=== PATIENT | male | born 1940 | race Caucasian/White ===

== ENCOUNTER 2020-11-04 18:18 | Inpatient (IN) ==
[2020-11-04] MEDS ORDERED: *HR* Heparin 10,000 UNIT/10 ML VIAL ONE (18:21)
[2020-11-04] MEDS ORDERED: Heparin 1,000 UNITS/500 mL 500 ML ONE (18:21)
[2020-11-04] MEDS ORDERED: ISOVUE-370 200 ML INFUS..BTL ONE (18:21)
[2020-11-04] MEDS ORDERED: 0.9 % Sodium Chloride 2,000 ML ONE (18:21)
[2020-11-04] MEDS ORDERED: Nitroglycerin 1,000 MCG/10 ML VIAL IV ONE (18:22)
[2020-11-04] MEDS ORDERED: *HR* FentaNYL (PF) 100 MCG/2 ML VIAL ONE (18:38)
[2020-11-04] MEDS ORDERED: *HR* Midazolam HCl 2 MG/2 ML VIAL ONE (18:39)
[2020-11-04] MEDS ORDERED: Perflutren Lipid Microsphere 1.3 ML in 0.9 % Sodium Chloride 8.7 ML IVP PRN (19:53)
[2020-11-04] MEDS: *HR* Ticagrelor 90 MG TABLET PO SCH (21:48)
[2020-11-05 04:58] LABS: Basophils % 0.5 %; Eosinophils # 0.3 K/mcL (0.0-0.6); Eosinophils % 3.4 %; Hematocrit 41.6 % (37.5-50.1); Hemoglobin 13.5 g/dL (12.9-16.9); Immature Granulocytes % 0.2 % (0-4); Lymphocytes # 1.5 K/mcL (0.6-4.6); Lymphocytes % 17.5 %; Mean Corpuscular HGB Conc 32.5 g/dL (31.6-35.5); Mean Corpuscular Volume 95.6 fL (83.0-100.0); Mean Platelet Volume 11.1 fL (9.4-12.4); Monocytes # 0.8 K/mcL (0.0-1.3); Monocytes % 9.2 %; Neutrophils # 6.1 K/mcL (1.6-8.9); Platelet Count 204 K/mcL (140-400); Red Blood Count 4.35 M/mcL (4.19-5.50); Red Cell Distribution Width 12.5 % (11.5-14.5); Segmented Neutrophils % 69.2 %; White Blood Count 8.7 K/mcL (4.3-11.1)
[2020-11-05 05:23] LABS: Alanine Aminotransferase 23 Units/L (7-52); Albumin 3.6 g/dL (3.5-5.7); Alkaline Phosphatase 60 Units/L (34-104); Aspartate Amino Transferase 91 Units/L (13-39); BUN/Creatinine Ratio 25 (6-26); Bilirubin,Total 0.8 mg/dL (0.3-1.0); Blood Urea Nitrogen 29 mg/dL (8-23); Calcium 9.4 mg/dL (8.6-10.3); Carbon Dioxide 26 mEq/L (23-29); Chloride 107 mEq/L (98-107); Glucose 105 mg/dL (70-105); Osmolality,Calculated 292 (280-300); Sodium 138 mEq/L (136-145); eGFR For African Americans > 60 (> 60); eGFR For Non-African Americans > 60 (> 60)
[2020-11-05 05:24] LABS: Albumin/Globulin Ratio 1.5 (1.1-2.2); Chol/HDL Ratio 6.6 (0-4.9); Cholesterol 237 mg/dL (< 200); Globulin 2.4 g/dL (2.4-3.5); HDL Cholesterol 36 mg/dL (40-59); LDL Cholesterol,Calculated 169 mg/dL (< 100); Triglycerides 160 mg/dL (< 150); Troponin I 29.68 ng/mL (< 0.04)
[2020-11-05] MEDS: 0.9 % Sodium Chloride 1,000 ML IVC SCH ×2 (06:19→18:17)
[2020-11-05] MEDS: carvediloL 6.25 MG TABLET PO SCH ×2 (08:26→18:15)
[2020-11-05] MEDS: *HR* Ticagrelor 90 MG TABLET PO SCH ×2 (08:26→20:13)
[2020-11-05] MEDS: lisinopriL 5 MG TABLET PO SCH (08:26)
[2020-11-05] MEDS: Aspirin Enteric Coated 81 MG Tablet PO SCH (08:26)
[2020-11-05] MEDS ORDERED: lisinopriL 5 MG TABLET PO SCH (09:00)
[2020-11-05 09:35] LABS: Estimated Average Glucose 123 mg/dl; Hemoglobin A1C 5.9 %
[2020-11-05] MEDS ORDERED: Perflutren Lipid Microsphere 1.3 ML in 0.9 % Sodium Chloride 8.7 ML IVP PRN (14:09)
[2020-11-06 02:29] LABS: Basophils % 0.4 %; Eosinophils # 0.3 K/mcL (0.0-0.6); Eosinophils % 4.6 %; Hematocrit 40.1 % (37.5-50.1); Hemoglobin 13.4 g/dL (12.9-16.9); Immature Granulocytes % 0.1 % (0-4); Lymphocytes # 1.5 K/mcL (0.6-4.6); Mean Corpuscular HGB Conc 33.4 g/dL (31.6-35.5); Mean Corpuscular Hemoglobin 32.5 pg (28.0-33.3); Mean Corpuscular Volume 97.3 fL (83.0-100.0); Mean Platelet Volume 10.8 fL (9.4-12.4); Monocytes # 0.7 K/mcL (0.0-1.3); Monocytes % 9.9 %; Neutrophils # 4.7 K/mcL (1.6-8.9); Platelet Count 193 K/mcL (140-400); Red Blood Count 4.12 M/mcL (4.19-5.50); Red Cell Distribution Width 12.6 % (11.5-14.5); White Blood Count 7.3 K/mcL (4.3-11.1)
[2020-11-06 02:49] LABS: BUN/Creatinine Ratio 26 (6-26); Blood Urea Nitrogen 27 mg/dL (8-23); Carbon Dioxide 23 mEq/L (23-29); Chloride 109 mEq/L (98-107); Glucose 101 mg/dL (70-105); Osmolality,Calculated 293 (280-300); Potassium 3.9 mEq/L (3.5-5.1); Sodium 139 mEq/L (136-145); eGFR For African Americans > 60 (> 60); eGFR For Non-African Americans > 60 (> 60)
[2020-11-06] MEDS: 0.9 % Sodium Chloride 1,000 ML IVC SCH ×2 (06:49→23:34)
[2020-11-06] MEDS: lisinopriL 5 MG TABLET PO SCH (08:05)
[2020-11-06] MEDS: *HR* Ticagrelor 90 MG TABLET PO SCH ×2 (08:06→21:07)
[2020-11-06] MEDS: carvediloL 6.25 MG TABLET PO SCH ×2 (08:06→17:08)
[2020-11-06] MEDS: Aspirin Enteric Coated 81 MG Tablet PO SCH (08:06)
[2020-11-07 06:26] LABS: Basophils % 0.4 %; Eosinophils # 0.3 K/mcL (0.0-0.6); Hematocrit 39.6 % (37.5-50.1); Hemoglobin 12.9 g/dL (12.9-16.9); Immature Granulocytes % 0.2 % (0-4); Lymphocytes # 0.9 K/mcL (0.6-4.6); Lymphocytes % 11.3 %; Mean Corpuscular HGB Conc 32.6 g/dL (31.6-35.5); Mean Corpuscular Hemoglobin 31.9 pg (28.0-33.3); Mean Corpuscular Volume 97.8 fL (83.0-100.0); Monocytes # 0.7 K/mcL (0.0-1.3); Monocytes % 8.7 %; Neutrophils # 6.4 K/mcL (1.6-8.9); Platelet Count 178 K/mcL (140-400); Red Blood Count 4.05 M/mcL (4.19-5.50); Red Cell Distribution Width 12.5 % (11.5-14.5); Segmented Neutrophils % 76.4 %; White Blood Count 8.3 K/mcL (4.3-11.1)
[2020-11-07 06:51] LABS: BUN/Creatinine Ratio 21 (6-26); Blood Urea Nitrogen 25 mg/dL (8-23); Carbon Dioxide 25 mEq/L (23-29); Chloride 108 mEq/L (98-107); Glucose 108 mg/dL (70-105); Osmolality,Calculated 293 (280-300); Potassium 4.8 mEq/L (3.5-5.1); Sodium 139 mEq/L (136-145); eGFR For African Americans > 60 (> 60); eGFR For Non-African Americans 57 (> 60)
[2020-11-07] MEDS: carvediloL 6.25 MG TABLET PO SCH ×2 (07:35→16:32)
[2020-11-07] MEDS: lisinopriL 5 MG TABLET PO SCH (07:36)
[2020-11-07] MEDS: Aspirin Enteric Coated 81 MG Tablet PO SCH (07:36)
[2020-11-07] MEDS: *HR* Ticagrelor 90 MG TABLET PO SCH ×2 (07:36→21:20)
[2020-11-07] MEDS: 0.9 % Sodium Chloride 1,000 ML IVC SCH ×3 (07:39→23:49)
[2020-11-07] MEDS ORDERED: Heparin 1,000 UNITS/500 mL 500 ML ONE (14:53)
[2020-11-07] MEDS ORDERED: 0.9 % Sodium Chloride 1,000 ML ONE (14:53)
[2020-11-07] MEDS ORDERED: ISOVUE-370 200 ML INFUS..BTL ONE ×2 (14:53→15:41)
[2020-11-07] MEDS ORDERED: Nitroglycerin 1,000 MCG/10 ML VIAL IV ONE (14:53)
[2020-11-07] MEDS ORDERED: *HR* Heparin 10,000 UNIT/10 ML VIAL ONE (14:53)
[2020-11-07] MEDS ORDERED: Tirofiban 12.5 MG/250ML 12.5 MG/250 ML BAG ONE (14:53)
[2020-11-07] MEDS ORDERED: *HR* FentaNYL (PF) 100 MCG/2 ML VIAL ONE (15:16)
[2020-11-07] MEDS ORDERED: *HR* Midazolam HCl 2 MG/2 ML VIAL ONE (15:16)
[2020-11-08 05:30] LABS: Hematocrit 41.2 % (37.5-50.1); Hemoglobin 13.3 g/dL (12.9-16.9); Mean Corpuscular HGB Conc 32.3 g/dL (31.6-35.5); Mean Corpuscular Hemoglobin 31.6 pg (28.0-33.3); Mean Corpuscular Volume 97.9 fL (83.0-100.0); Mean Platelet Volume 11.4 fL (9.4-12.4); Platelet Count 197 K/mcL (140-400); Red Blood Count 4.21 M/mcL (4.19-5.50); Red Cell Distribution Width 12.5 % (11.5-14.5)
[2020-11-08 05:50] LABS: BUN/Creatinine Ratio 21 (6-26); Blood Urea Nitrogen 21 mg/dL (8-23); Calcium 9.2 mg/dL (8.6-10.3); Carbon Dioxide 22 mEq/L (23-29); Chloride 108 mEq/L (98-107); Glucose 87 mg/dL (70-105); Osmolality,Calculated 288 (280-300); Potassium 4.2 mEq/L (3.5-5.1); Sodium 138 mEq/L (136-145); eGFR For African Americans > 60 (> 60); eGFR For Non-African Americans > 60 (> 60)
[2020-11-08] MEDS: carvediloL 6.25 MG TABLET PO SCH (08:11)
[2020-11-08] MEDS: *HR* Ticagrelor 90 MG TABLET PO SCH (08:11)
[2020-11-08] MEDS: Aspirin Enteric Coated 81 MG Tablet PO SCH (08:11)
[2020-11-08] MEDS ORDERED: Nitroglycerin 0.4 MG TAB.SUBL SL PRN (08:35)
[2020-11-08] MEDS ORDERED: carvediloL 6.25 MG TABLET PO SCH ×2 (08:45→17:00)
[2020-11-08] MEDS ORDERED: carvediloL 6.25 MG TABLET PO ONE (08:48)
[2020-11-08] MEDS ORDERED: lisinopriL 5 MG TABLET PO SCH (09:00)
[2020-11-08] MEDS: 0.9 % Sodium Chloride 1,000 ML IVC SCH (11:24)
[2020-11-08 14:04] VITALS: BP 153/83
== END 2020-11-08 15:10 | disposition home or self-care (01) | DRG 247 ==
LOC: ICNU 19:10
PROVIDERS: ADMIT Internal Medicine Cardiovascular Disease; ATTEND Internal Medicine Cardiovascular Disease